=== PATIENT | female | born 1985 | race Caucasian/White ===

== ENCOUNTER 2016-07-11 13:53 | Emergency (ER) | payer BC, OTHER ==
[~2016-07-11] VITALS: Ht 157.5 cm; Wt 60.0 kg
--- NOTE | 2016-07-11 13:58 | PD ---
HPI . dental pain x 1 week Chief Complaint: Oral / Dental Pain or Problem Time Seen by Provider: 13:58 Travel History International Travel<30 days: No Contact w/Intl Traveler<30days: No Traveled to known affect area: No History of Present Illness HPI 30-year-old female here with complaints of dental pain for about a week. Patient tells me that she is not certain which tooth is causing her pain, but she started taking some amoxicillin and has an appointment with the dentist on Tuesday. She tells me that she thinks they will be doing a root canal. She has not yet been evaluated by the dentist. She tells me that she is taking Tylenol and Motrin and she needs something stronger for the pain. She is here requesting pain medicines. PFSH Past Medical History ?: Not Social History Tobacco Use: Yes Allergies-Medications (Allergen,Severity, Reaction): Coded Allergies: Ciprofloxacin (Verified Allergy, Intermediate, 07/11/16) confusion Reported Meds & Prescriptions Reported Meds & Active Scripts Active Reported Pepcid (Famotidine) 20 Mg Tab 10 Mg PO DAILY Buspirone (Buspirone HCl) 10 Mg Tab 10 Mg PO DAILY Loestrin 1/20 (Norethindrone-Ethinyl Estradiol) 1-20 Mg-Mcg Tab 1 Tab PO DAILY Review of Systems General / Constitutional: No: Fever Eyes: No: Visual changes HENT: Positive: Dental Difficulties, No: Headaches Cardiovascular: No: Chest Pain or Discomfort Respiratory: No: Shortness of Breath Gastrointestinal: No: Abdominal Pain Genitourinary: No: Dysuria Musculoskeletal: No: Pain Skin: No Rash Neurologic: No: Weakness Psychiatric: No: Depression Endocrine: No: Polydipsia Hematologic/Lymphatic: No: Easy Bruising Physical Exam Narrative GENERAL: AAO x 3, no acute distress, Well-nourished, well-developed patient. SKIN: Warm and dry. No visible rashes or bruising. HEAD: Normocephalic and atraumatic. EYES: No scleral icterus. No injection or drainage. EOM intact, PERRLA ENT: No nasal drainage noted. Mucous membranes pink. Airway patent. No abnormality seen in the oropharynx. No fluid collection or gumline swelling. NECK: Supple, trachea midline. No JVD. No lymphadenopathy CARDIOVASCULAR: Regular rate and rhythm without murmurs, gallops, or rubs. RESPIRATORY: Breath sounds equal bilaterally. No accessory muscle use. No rhonchi or rales. GASTROINTESTINAL: Visual inspection normal EXTREMITIES: No cyanosis or edema. BACK: Nontender without obvious deformity. No CVA tenderness. PSYCH: AAO x 3, normal affect. Data Data Orders Tramadol (Ultram) (07/11/16 14:15) MDM Medical Decision Making Medical Screen Exam Complete: Yes Emergency Medical Condition: Yes Medical Record Reviewed: Yes Differential Diagnosis Dentalgia, less likely oral abscess, less likely cracked tooth Narrative Course In summary this is a 30-year-old female here with complaints of dental pain. Patient is taken amoxicillin and requesting stronger pain medications. I've done a thorough examination on her oropharynx and I do not visualize any type of abnormality on examination. I do not see any dental caries or cracked teeth. I've explained to her that unfortunately I will not be prescribing her any narcotic pain medication for this. I have provided her with a tramadol here in the emergency department. She has been advised to keep her appointment with her dentist. Diagnosis Primary Impression: Dentalgia Patient Instructions: Narcotic given in the ED, General Instructions Additional Instructions: Please keep your appointment with your dentist. Med/Other Pt SpecificInfo: No Change to Meds Disposition: 01 DISCHARGE HOME Condition: Stable Kath Wick July 11, 2016 13:58
[2016-07-11] MEDS ORDERED: traMADol HCL 50 MG TAB PO ONE (14:15)
[2016-07-11] MEDS ORDERED: FAMO1TAB37 PO (14:19)
[2016-07-11] MEDS ORDERED: BUSP10TA PO (14:19)
[2016-07-11] MEDS ORDERED: NORE1TAB60 PO (14:19)
== END 2016-07-11 14:40 | disposition home or self-care (01) ==
LOC: NEPK 13:53
DX: K08.89 Other specified disorders of teeth and supporting structures (principal); Z72.0 Tobacco use
CPT/HCPCS: 99282